=== PATIENT | female | born 1995 | race Hispanic/Latino ===

== ENCOUNTER → 2017-02-19 | Outpatient (REF) | payer OTHER ==
[~2017-02-19] MED LIST: ACET50TA PO; ANUS2.5C2 TOP; DIBU1OI TOP; IBUP60TA PO; PRENTAB55 PO
== END ==
LOC: M SFHCLERA 16:06
PROVIDERS: ATTEND Nurse Practitioner Family
DX: J06.9 Acute upper respiratory infection, unspecified (principal)

== ENCOUNTER → 2017-09-18 | Outpatient (REF) | payer OTHER | LOC: M LAB REF 13:18 | DX: Z34.83 Encounter for supervision of other normal pregnancy, third trimester (principal) ==

== ENCOUNTER → 2017-09-29 | Outpatient (CLI) | payer OTHER ==
[2017-09-29 14:53] LABS: ALBUMIN 2.5 GM/DL (3.2-5.2); ALBUMIN/GLOBULIN RATIO 0.76 (1.00-1.93); ALKALINE PHOSPHATASE 128 U/L (45-117); ALT/SGPT 19 U/L (12-78); AST/SGOT 16 U/L (7-37); BILIRUBIN,DIRECT < 0.1 MG/DL (0.0-0.2); BILIRUBIN,TOTAL 0.2 MG/DL (0.2-1.0); TOTAL PROTEIN 5.8 GM/DL (6.4-8.2)
[2017-10-03 00:06] LABS: BILE ACIDS FRACTIONATED 7.4 umol/L (4.7-24.5)
== END ==
LOC: M SMT 10:50
DX: L29.8 Other pruritus (principal)
CPT/HCPCS: 80076

== ENCOUNTER 2017-10-07 14:46 | Inpatient (IN) | payer OTHER ==
[2017-10-07] MEDS ORDERED: LR 1,000 ML IV (15:41)
[2017-10-07] MEDS ORDERED: PROMETHAZINE INJ 25 MG/ML VIAL (J2550) IV (15:45)
[2017-10-07] MEDS ORDERED: BUTORPHANOL 2 MG/ML INJ (J0595) IV (15:45)
[2017-10-07] MEDS ORDERED: OXYTOCIN 30 UNITS IN 0.9% NaCl 500ML IV BAG (J2590) As Ordered (15:57)
[2017-10-07 16:03] LABS: HEMATOCRIT 36.6 % (36.0-47.0); HEMOGLOBIN 12.6 g/dl (12.0-16.0); MEAN CORPUSCULAR HEMOGLOBIN 31.1 pg (27.0-33.0); MEAN CORPUSCULAR HGB CONC 34.4 g/dl (32.0-36.5); MEAN CORPUSCULAR VOLUME 90.4 fl (80.0-96.0); PLATELET COUNT, AUTOMATED 215 10^3/uL (150-450); RED BLOOD COUNT 4.05 10^6/uL (4.00-5.40); RED CELL DISTRIBUTION WIDTH 13.3 % (11.5-14.5); WHITE BLOOD COUNT 12.4 10^3/uL (4.0-10.0)
[2017-10-07] MEDS ORDERED: UNASYN 3 GM VIAL As Ordered (16:50)
[2017-10-07] MEDS: AMPICILLIN SOD/SULBACTAM SOD 3 GM in D5W MINI-BAG PLUS 100 ML IV (17:03)
[2017-10-07] MEDS ORDERED: METHYLERGONOVINE MALEATE 0.2 MG TAB PO (17:15)
[2017-10-07] MEDS ORDERED: MOM 30ML SUSPENSION UDC PO (17:15)
[2017-10-07] MEDS ORDERED: ANUSOL HC CREAM 30GM TOP (17:15)
[2017-10-07] MEDS: miSOPROStol 200 MCG TAB (S0191) PR (17:15)
[2017-10-07] MEDS: IBUPROFEN 800 MG TAB PO (17:53)
[2017-10-07] MEDS: OXYTOCIN DRIP 30 UNITS in APPROPRIATE DILUENT 1 EA IV (17:54)
[2017-10-07] MEDS: ACETAMINOPHEN 500 MG TAB PO (19:43)
[2017-10-07] MEDS: DIBUCAINE 1% OINTMENT 30GM TOP (19:44)
[2017-10-07] MEDS: LACTATED RINGER'S 1000 ML IV (20:17)
[2017-10-08] MEDS: DOCUSATE SODIUM 100 MG CAP PO (00:08)
[2017-10-08] MEDS: RHOGAM 300 MCG (1500 IU) INJ (J2790) IM (01:14)
[2017-10-08] MEDS: MEASLES,MUMPS,RUBELLA VACCINE INJ (MMR-II) (90707) SC (01:14)
[2017-10-08] MEDS: IBUPROFEN 800 MG TAB PO (02:06)
[2017-10-08] MEDS: ACETAMINOPHEN 500 MG TAB PO (02:06)
[2017-10-08] MEDS: PRENATAL VITAMINS CHEWABLE TABLET PO (08:10)
== END 2017-10-08 17:55 | disposition home or self-care (01) | DRG 767 ==
LOC: M LDO 14:46 → M LDI 15:18 → M OBS 18:48
PROVIDERS: Obstetrics & Gynecology
PROC: 10D17Z9 Manual Extraction of Products of Conception, Retained, Via Natural or Artificial Opening (ICD-10-PCS; principal; 2017-10-07)
PROC: 10E0XZZ Delivery of Products of Conception, External Approach (ICD-10-PCS; 2017-10-07)
DX: O73.0 Retained placenta without hemorrhage (principal); Z37.0 Single live birth; Z3A.39 39 weeks gestation of pregnancy; O69.89X0 Labor and delivery complicated by other cord complications, not applicable or unspecified

== ENCOUNTER → 2017-10-12 | Outpatient (REF) | payer OTHER | LOC: M LAB REF 13:08 | DX: L02.215 Cutaneous abscess of perineum (principal) ==

== ENCOUNTER → 2017-11-14 | Outpatient (REF) | payer OTHER ==
[2017-11-14 17:14] LABS: INFLUENZA A AMPLIFICATION NEGATIVE (NEGATIVE); INFLUENZA B AMPLIFICATION NEGATIVE (NEGATIVE)
== END ==
LOC: M LAB REF 16:25
DX: J11.1 Influenza due to unidentified influenza virus with other respiratory manifestations (principal)

== ENCOUNTER → 2018-01-10 | Outpatient (CLI) | payer OTHER ==
[2018-01-10 18:31] LABS: TOTAL 25(OH) VITAMIN D 21.8 NG/ML (30.0-100.0)
[2018-01-10 18:35] LABS: FREE T4 1.19 NG/DL (0.76-1.46)
[2018-01-10 18:35] LABS: THYROID STIMULATING HORMONE 0.756 uIU/ML (0.358-3.740)
== END ==
LOC: M SMT 13:09
DX: Z12.31 Encounter for screening mammogram for malignant neoplasm of breast (principal)
CPT/HCPCS: 84443

== ENCOUNTER → 2018-03-29 | Outpatient (REF) | payer OTHER ==
[2018-03-29 23:51] LABS: CHLAMYDIA DNA AMPLIFICATION NEGATIVE (NEGATIVE); GC DNA AMPLIFICATION NEGATIVE (NEGATIVE)
== END ==
LOC: M LAB REF 17:04
DX: R30.0 Dysuria (principal)